=== PATIENT | female | born 1945 | race Caucasian/White ===

== ENCOUNTER 2022-07-27 11:14 | Inpatient (IN) | payer MEDICARE ==
[~2022-07-27] VITALS: Ht 149.9 cm; Wt 63.5 kg
[2022-07-27 11:31] VITALS: BP 168/98
--- NOTE | 2022-07-27 12:00 | NUR ---
DR MEDINA AT BEDSIDE FOR EVAL
[2022-07-27 12:16] LABS: BASOPHILS % (AUTO) 0.4 % (0.0-2.0); EOSINOPHILS # (AUTO) 0.2 K/uL (0-0.4); EOSINOPHILS % (AUTO) 3.6 % (0.0-4.0); HEMOGLOBIN 12.3 g/dL (12.0-16.0); LYMPHOCYTES # (AUTO) 2.3 K/uL (2.5-16.5); LYMPHOCYTES % (AUTO) 38.1 % (20.5-51.1); MEAN CORPUSCULAR HEMOGLOBIN 24 pg (27-31); MEAN CORPUSCULAR HGB CONC 32 g/dL (33-37); MEAN CORPUSCULAR VOLUME 74.8 fL (80-94); MONOCYTES # (AUTO) 0.5 K/uL (0.8-1.0); MONOCYTES % (AUTO) 8.1 % (1.7-9.3); NEUTROPHILS % (AUTO) 49.8 % (42.2-75.2); PLATELET COUNT (AUTO) 98 K/uL (140-450); RED BLOOD CELL COUNT(AUTO) 5.21 MIL/uL (4.20-5.40); RED CELL DISTRIBUTION WIDTH 21.3 % (11.6-13.7)
[2022-07-27] MEDS ORDERED: HYDR12.51 PO (12:47)
[2022-07-27] MEDS ORDERED: AMLO1TAB11 PO (12:47)
[2022-07-27] MEDS ORDERED: ARIP5TAB61 PO (12:47)
[2022-07-27] MEDS ORDERED: GABA300C PO (12:47)
[2022-07-27] MEDS ORDERED: LEVO0.1T19 PO (12:47)
[2022-07-27] MEDS ORDERED: METF-1139 PO (12:47)
[2022-07-27] MEDS ORDERED: ACAR50TA PO (12:47)
[2022-07-27] MEDS ORDERED: EMPA10TA PO (12:47)
[2022-07-27] MEDS ORDERED: INSU100S45 SUBQ (12:47)
--- NOTE | 2022-07-27 12:47 | NUR ---
PT TAKEN TO CT VIA JASON
[2022-07-27 12:48] LABS: ALBUMIN 4.1 g/dL (3.4-5.0); ASPARTATE AMINOTRANSFERASE 45 U/L (15-37); CARBON DIOXIDE 26.1 mmol/L (21-32); CHLORIDE 104 mmol/L (98-107); CREATININE 0.6 mg/dL (0.6-1.3); GLUCOSE 81 mg/dL (74-106); POTASSIUM 3.1 mmol/L (3.5-5.1); SODIUM SERUM 143 mmol/L (136-145); TOTAL BILIRUBIN 1.1 mg/dL (0.0-1.0); UREA NITROGEN, BLOOD 8 mg/dL (7-18)
--- NOTE | 2022-07-27 12:57 | NUR ---
PT RETURN FROM CT
--- NOTE | 2022-07-27 13:03 | NUR ---
77 Y/O FEMALE BIB DAUGHTER C/O LEFT ARM NUMBNESS AND DIZZINESS [id number] YESTERDAY, PER DAUGHTER SHE STATED THAT SHE HAD 1 EPISODE OF CHEST PAIN YESTERDAY, DENIES ANY CP AT THIS TIME. ERMD CALLED TO BED FOR NIHSS. CHANGED INTO A GOWN AND PLACED ON MATERIAL INSPECTOR. ALLERGY: CODEINE PMH: HTN, DM, HDL, HYPOTHYROID
--- NOTE | 2022-07-27 13:08 | NUR ---
AMBULATED TO BATHROOM
--- NOTE | 2022-07-27 13:40 | NUR ---
LAB AT BEDSIDE FOR BLOOD CULTURE AND TROPONIN
[2022-07-27 13:47] LABS: APPEARANCE,URINE CLEAR (CLEAR); BILIRUBIN,URINE NEGATIVE (NEGATIVE); BLOOD, URINE TRACE-I (NEGATIVE); COLOR,URINE YELLOW (YELLOW); LEUKOCYTE ESTERASE ,URINE NEGATIVE (NEGATIVE); NITRITE, URINE NEGATIVE (NEGATIVE); UGLUCOSE 3+ (NEGATIVE)
--- NOTE | 2022-07-27 13:49 | NUR ---
[facility] Addendum: 07/27/22 at 1353 by MNANURAG PER ISABELA FROM [facility], INFORMED OF PT STATUS, CALL BACK NUMBER [phone]
[2022-07-27] MEDS ORDERED: cefTRIAXone 1,000 MG VIAL ONE (14:06)
[2022-07-27 14:11] LABS: RBC,URINE 0-5 /HPF (0-5)
--- NOTE | 2022-07-27 14:11 | NUR ---
TRANSFER TO [facility], FAX#[phone], HAVE TO PROVIDE INSURANCE EXAMINING CLERK TIMOTHY, WITH FACE SHEET, COVID RESULTS, CLINICALS PER SIDNEY
[2022-07-27 14:12] LABS: WBC,URINE 0-5 /HPF (0-5)
--- NOTE | 2022-07-27 16:14 | NUR ---
SPOKE TO ISABELA FROM [facility], STATED THAT SHE IS STILL LOOKING FOR BEDS FOR TRANSFER.
--- NOTE | 2022-07-27 17:00 | NUR ---
PT IN BED ASLEEP, RESPIRATIONS EVEN AND UNLABORED. ON BEDSIDE MONITOR
[2022-07-27] MEDS ORDERED: HYDROcodone/APAP 5/325 MG 1 TAB TAB PO PRN (17:50)
[2022-07-27] MEDS ORDERED: POTASSIUM CHLORIDE 10 MEQ TABER PO PRN (17:50)
[2022-07-27] MEDS ORDERED: MAGNESIUM OXIDE 400 MG TAB PO PRN (17:50)
[2022-07-27] MEDS ORDERED: MORPHINE SULFATE 4 MG/ML SYR IVP PRN (17:50)
[2022-07-27] MEDS ORDERED: ONDANSETRON 4 MG/2 ML VIAL IVP PRN (17:50)
[2022-07-27] MEDS ORDERED: ACETAMINOPHEN 325 MG TAB PO PRN (17:50)
[2022-07-27] MEDS ORDERED: KCL 20 MEQ IN 100 mL PREMIX 200 ML IV PRN (17:50)
[2022-07-27] MEDS ORDERED: MAG SULF 2000 MG/WATER PREMIX 50 ML IV PRN (17:50)
[2022-07-27] MEDS ORDERED: hydrALAZINE 20 MG/ML VIAL IVP PRN (18:00)
--- NOTE | 2022-07-27 19:29 | NUR ---
Pt report given to ADA RN. Transfer of care at this time.
--- NOTE | 2022-07-27 20:56 | NUR ---
patient able to ambulate to the bathroom with daughter assisting patient.
[2022-07-27] MEDS ORDERED: AZITHROMYCIN 500 MG in DEXTROSE 5% 250 ML IV SCH (21:00)
[2022-07-27] MEDS ORDERED: IBUPROFEN 600 MG TAB PO PRN (21:00)
--- NOTE | 2022-07-27 21:02 | NUR ---
patient moved to bed 3
--- NOTE | 2022-07-27 21:03 | NUR ---
Pt report given to Cole GARCIA. Transfer of care at this time.
[2022-07-27] MEDS ORDERED: AZITHROMYCIN 500 MG INJ VIAL IV ONE (22:03)
--- NOTE | 2022-07-27 23:00 | NUR ---
Pt is here with her daughter. she is ku[place]i speaker. alert and oriented x 4.
--- NOTE | 2022-07-28 00:20 | NUR ---
pt is complaining about pain o the lower extimites. Daughter said she normally take tylenol.
--- NOTE | 2022-07-28 01:30 | NUR ---
Pt is resting and she said the pain is controlled.
[2022-07-28 06:26] LABS: BASOPHILS # (AUTO) 0.1 K/uL (0.00-0.22); BASOPHILS % (AUTO) 0.9 % (0.0-2.0); EOSINOPHILS # (AUTO) 0.2 K/uL (0-0.4); EOSINOPHILS % (AUTO) 3.3 % (0.0-4.0); HEMATOCRIT 39.1 % (36-48); HEMOGLOBIN 12.5 g/dL (12.0-16.0); LYMPHOCYTES # (AUTO) 3.1 K/uL (2.5-16.5); LYMPHOCYTES % (AUTO) 46.5 % (20.5-51.1); MEAN CORPUSCULAR HEMOGLOBIN 24 pg (27-31); MEAN CORPUSCULAR HGB CONC 32 g/dL (33-37); MEAN CORPUSCULAR VOLUME 75.4 fL (80-94); MONOCYTES # (AUTO) 0.5 K/uL (0.8-1.0); MONOCYTES % (AUTO) 6.9 % (1.7-9.3); NEUTROPHILS # (AUTO) 2.9 K/uL (1.8-7.7); NEUTROPHILS % (AUTO) 42.4 % (42.2-75.2); PLATELET COUNT (AUTO) 100 K/uL (140-450); RED BLOOD CELL COUNT(AUTO) 5.18 MIL/uL (4.20-5.40); RED CELL DISTRIBUTION WIDTH 20.7 % (11.6-13.7); WHITE BLOOD COUNT (AUTO) 6.8 K/uL (4.8-10.8)
[2022-07-28 06:49] LABS: ANION GAP 15.8 (8-16); ASPARTATE AMINOTRANSFERASE 30 U/L (15-37); CARBON DIOXIDE 27.2 mmol/L (21-32); CHLORIDE 102 mmol/L (98-107); CREATININE 0.5 mg/dL (0.6-1.3); GLUCOSE 141 mg/dL (74-106); MAGNESIUM 2.1 mg/dL (1.8-2.4); SODIUM SERUM 142 mmol/L (136-145); TOTAL BILIRUBIN 1.2 mg/dL (0.0-1.0); UREA NITROGEN, BLOOD 8 mg/dL (7-18)
--- NOTE | 2022-07-28 08:02 | NUR ---
dr christianson at bedside for eval
[2022-07-28 09:09] VITALS: BP 134/68
[2022-07-28 09:51] VITALS: BP 134/68
--- NOTE | 2022-07-28 09:52 | NUR ---
Patient discharged FROM INPATIENT with v/s stable. Written and verbal after care instructions given and explained. Patient verbalized understanding. Ambulatory with steady gait. All questions addressed prior to discharge. Advised to follow up with PMD.
== END 2022-07-28 09:52 | disposition home or self-care (01) | DRG 641 ==
LOC: MED 11:14 → MTU 17:50 → UNDODISIN 07-31 17:57
PROVIDERS: ADMIT Student in an Organized Health Care Education/Training Program; ATTEND Student in an Organized Health Care Education/Training Program
DX: E87.6 Hypokalemia (principal); D84.9 Immunodeficiency, unspecified; G45.9 Transient cerebral ischemic attack, unspecified; E11.65 Type 2 diabetes mellitus with hyperglycemia; E11.42 Type 2 diabetes mellitus with diabetic polyneuropathy; Z20.822 Contact with and (suspected) exposure to COVID-19; I10 Essential (primary) hypertension; E78.5 Hyperlipidemia, unspecified; Z88.5 Allergy status to narcotic agent; Z90.710 Acquired absence of both cervix and uterus
CPT/HCPCS: 36415; 70450; 71045; 80053; 81001; 83735; 83880; 84484; 85025; 87040; 93005; 96365; 96375; 99285; J0456; J0696; J7060; Q0092